=== PATIENT | female | born 1945 | race Caucasian/White ===

== ENCOUNTER → 2018-06-12 | Outpatient (CLI) | payer MEDICARE, OTHER ==
[2014-08-09 11:00] VITALS: BP 113/69
[~2018-06-12] MED LIST: ACET325T9 PO; ATOR10TA PO; BUPR150T6 PO; CETI10TA22 PO; DULO60CA6 PO; FLUT16SP NS; FOLI1TAB16 PO; GUAI600T47 PO; HYDR-3165 PO; IOHEXOL 180 MG/ML 10 ML VIAL. ONE; LISI1TAB5 PO; MELO15TA23 PO; METH-37 PO; METO-239 PO; MONT10TA9 PO; MULT1TAB52 PO; NITR50CA PO; OMEG-57 PO; PANT20TA2 PO; PANT40TA5 PO; SOLI5TAB2 PO; TIZA4TAB PO; TRAM50TA PO; VIT1TABL34 PO; methylPREDNISolone ACETATE 40 MG/ML VIAL. ONE; methylPREDNISolone ACETATE 80 MG/ML VIAL. ONE
--- NOTE | 2018-06-12 22:51 | PAIN ---
DATE OF SERVICE: 06/12/2018 INITIAL CONSULTATION FOR PAIN CLINIC CHIEF COMPLAINT: Neck and right upper extremity pain. SECONDARY COMPLAINT: Low back and left lower extremity pain. HISTORY OF PRESENT ILLNESS: This is a 72-year-old female who presents with chief complaint right neck and upper extremity pain. The patient is status post anterior cervical diskectomy with fusion with redo and then posterior fusion with instrumentation. The patient reports the pain at this time for about a year has been around in the neck and right upper extremity as noted. The patient reports no specific recent injury or action that she is aware of, but the pain is beginning to become more noticeable with repetitive motions, weightbearing with her right arm, reaching over her head or even driving the car with her right arm. The patient reports it generally is not awakening her from sleep at night, feels better with resting or putting her arm on her side, but when she is looking at her computer or reading with her head in a forward flexed position the pain is much more noticeable. The patient reports she has had physical therapy, chiropractic treatments, recently exercise continuously and still doing this. All these which do help to moderate extent, but nothing is decreasing the pain over about 20-30%. The patient has tried [id number] ibuprofen as well as Tylenol and narcotics in the past as well with only moderate decrease in pain. The patient rates her disability rating from 0-10, 10 being the worst, is a 6 with family and home responsibilities, recreation and occupation; 4 with social activity and sexual behavior; 1 with self-care and life support activities. The patient did have cervical MRI showing post-surgical changes, decompression and instrumentation at C5 through C7; ACDF at C6-C7; interbody spacer at C5-C6 and C6-C7; osseous fusion in the C5, C6 and C7 vertebral bodies; severe spinal stenosis C4-C5, one level above the patient's fusion. The patient describes the pain as constant, sharp, stabbing, radiating into the posterior shoulder blade itself and into the posterior triceps to the elbow and sometimes into the posterior aspect of the forearm as well, but not into the hand. The patient reports again has some tingling in the arm as well as radiating, constant, mostly sharp pain, sometimes electrical shocks as well. PAST MEDICAL HISTORY: Significant for hypertension, dizziness, arthritis, osteoporosis, asthma, chronic cough. The patient quit smoking in 1963. PREVIOUS SURGERY: Include right knee replacement in 2017, lumpectomy, orbital fracture of the right eye, arthroscopic right knee surgery, laminectomy L4-L5 in 1998, cervical surgery 2006 x 2 as well as cervical posterior fusion as additional surgery, breast biopsy in 2001, lumbar laminectomy again in 2001 and an ACDF in 2001. Also, previous ganglion cyst removal, carpal tunnel repairs and tonsillectomy as well as a cholecystectomy. CURRENT MEDICATIONS: Include VESIcare, Cymbalta, bupropion, lisinopril, pantoprazole, meloxicam, methocarbamol, Mucinex, stool softener, montelukast, tizanidine daily baby aspirin, Zyrtec, Atrovent, Lipitor, metoprolol, nitrofurantoin, Tylenol, Breo inhaler, fluticasone and methocarbamol. ALLERGIES: THE PATIENT IS ALLERGIC TO VANCOMYCIN, BACTRIM AND PENICILLIN. FAMILY HISTORY: Significant for hypertension. SOCIAL HISTORY: The patient does not drink alcohol, has not smoked in many years. Does not use any illegal, illicit or recreational drugs or substances. The patient is and lives locally in [place], [place]. Does not have any children living in the home. Reports she is currently retired. REVIEW OF SYSTEMS: The patient's review of systems is positive for those items mentioned in history of present illness. All systems reviewed and otherwise negative. It is complete, full and well documented on the patient's chart. PHYSICAL EXAMINATION: VITAL SIGNS: The patient's blood pressure is 146/68, pulse 52, respirations 18, temperature is 98.7 degrees Fahrenheit, height is 5 feet 7 inches, weight 219 pounds. GENERAL: The patient is awake, alert, oriented, appropriate, very pleasant demeanor. HEENT: Shows normocephalic, atraumatic. Extraocular movements intact and symmetrical. Oral cavity: Mucous membranes moist and pink. Dentition is intact. NECK: Shows anterior throat supple without palpable lymphadenopathy noted. Swallow reflex is symmetrical. CHEST: Shows normal on inspection. Breath sounds are clear to auscultation bilaterally. HEART: Shows S1, S2 clear. No murmurs auscultated. ABDOMEN: Soft, nontender, nondistended. No palpable organomegaly is noted. No rebound or guarding demonstrated. BACK: Shows spine grossly in the midline. Slight flattening of cervical lordotic curvature as well as thoracic kyphotic curvature, which is exaggerated and flattening of the lumbar lordotic curvature. Well-healed surgical scar in the lumbar distribution as well as the posterior cervical distribution and anterior cervical neck and throat, which appears well healed. The patient's posterior cervical paraspinous muscle shows symmetrical on inspection. On palpation shows some moderate tenderness throughout the upper, middle, lower distribution of paraspinous muscles bilaterally, slightly worse on the right than the left into the superior medial trapezius, but without trigger points, without specific radiation. The patient has good rotational motion both laterally greater than 45 degrees right and left as well as full forward flexion with only very mild pain reported with extension and flexion, but not with full lateral rotation. The patient's low back shows good rotational motion as well, both laterally greater than 10 degrees right and left as well as extension greater than 10 degrees, forward flexion 45 degrees without significant pain reported. Paraspinous musculature in the lumbar distribution is diffusely tender, but only mildly so throughout the upper, middle and lower distribution of paraspinous muscles. The patient's upper extremities show deep tendon reflexes at 2+ in the biceps and triceps tendons. Motor exam is approximately 4 on a scale 5 on the right and 5/5 on the left with cranberry bog supervisor strength bicep and tricep flexion. Shoulder shrug is strong and intact without loss of strength on resistance, but with pain reported in the right posterior scapula with resistance. This is true with abduction of the shoulders at 90 degrees with no loss of strength on resistance, but again with pain reported in the right scapula with resistance only, not on the left. Lower extremities show deep tendon reflexes 1+ in the patellar and tendo calcaneus tendons. Motor exam is strong with approximately 4/5 equal and symmetrical dorsiflexion, extension, quadriceps and hamstring flexion of lower extremities. Peripheral pulses are 1+ posterior tibia. No peripheral edema is noted. Extremities are equal in color and appearance. Warm and dry to touch both upper and lower. No edema bilaterally in any of the extremities. The patient's skin shows warm and dry, good turgor. No edema. No sores, rashes or bruising. IMPRESSION: This is a 72-year-old female with: 1. Long history of both neck and low back pain with multiple spinal surgical interventions and fusions in both regions with radicular pain now in the low back, left lower extremity as well as the right shoulder and right upper extremity, which is her chief complaint. 2. MRI scan of cervical spine as noted. 3. Hypertension. 4. Arthritis. 5. Osteoporosis. 6. Asthma. PLAN: Options were discussed with the patient including conservative medical management, physical therapy, interventional techniques. She would like to pursue interventional techniques. We discussed a cervical epidural steroid injection using description as well as anatomical models to describe the procedure. Risks were then discussed including, but not limited to bleeding, infection, possibility of epidural hematoma, subsequent neurological compromise, dural puncture, headaches, spinal cord and/or nerve damage, side effects of steroid medication and poor results regarding pain control. The patient understands and wishes to proceed. The patient will return to the clinic in approximately 2 weeks for followup, was counseled to return appointment, activity level and side effects to be aware of. DIAGNOSES: Cervical radiculopathy with cervical degenerative disk disease and post-cervical laminectomy syndrome. PROCEDURE: Cervical epidural steroid injection translaminar approach at C7-T1 level using C-arm fluoroscopic guidance under sterile prep and drape using local anesthetic. MEDICATION INJECTED: A total of 120 mg Depo-Medrol plus 5 mL preservative-free normal saline and 2 mL of Isovue for contrast. CONDITION AT DISCHARGE: Stable. The patient tolerated the procedure well, had no complications. MAGED ESTEVES MD DR: REMBERTO/mukesh JOB#: [id number] / [id number]
== END | disposition home or self-care (01) ==
LOC: PNCL 10:19
PROVIDERS: ATTEND Anesthesiology
DX: M50.13 Cervical disc disorder with radiculopathy, cervicothoracic region (principal); M96.1 Postlaminectomy syndrome, not elsewhere classified; I10 Essential (primary) hypertension; J45.909 Unspecified asthma, uncomplicated; M19.90 Unspecified osteoarthritis, unspecified site; M81.0 Age-related osteoporosis without current pathological fracture; Z87.891 Personal history of nicotine dependence; Z96.651 Presence of right artificial knee joint; Z98.890 Other specified postprocedural states; Z90.49 Acquired absence of other specified parts of digestive tract; Z79.899 Other long term (current) drug therapy; Z79.82 Long term (current) use of aspirin; Z88.0 Allergy status to penicillin; Z88.1 Allergy status to other antibiotic agents; Z82.49 Family history of ischemic heart disease and other diseases of the circulatory system; Z88.8 Allergy status to other drugs, medicaments and biological substances
CPT/HCPCS: 62321; J1030; J1040; Q9965

== ENCOUNTER → 2018-06-29 | Outpatient (CLI) | payer MEDICARE, OTHER ==
[2014-08-09 11:00] VITALS: BP 113/69
[~2018-06-29] MED LIST changes: +ASPI81TA50 PO
--- NOTE | 2018-06-29 12:21 | PAIN ---
DATE OF SERVICE: 06/29/2018 PROGRESS NOTE FOR PAIN CLINIC DIAGNOSES: 1. Cervical radiculopathy with cervical degenerative disk disease and cervical post-laminectomy syndrome. 1. Lumbar radiculopathy with lumbar degenerative disk disease, post-lumbar laminectomy syndrome. HISTORY OF PRESENT ILLNESS: The patient is a 72-year-old female who returns for followup status post cervical epidural steroid injection x 1. The patient reports about 2 weeks of decreased pain by about 50%. The patient reports that the pain in the neck and right shoulder is much better, not as much, traveling down past the shoulder and the arm as it was previously. The patient is doing quite a bit better, was increasing her activity with greater ease and comfort, doing household activities with greater ability and ease, sleeping well at night and continues to sleep well and it does not awaken her from sleep. The patient reports pain is in the base of the neck, right shoulder posteriorly mainly into the scapula and into the posterior deltoid, posterior triceps and some into the forearm, but much less than previously. The patient reports it is aching and constant, becoming more noticeable radiating and some stabbing sensation in the neck and shoulder as well. The patient reports her pain is 7 on a scale of 10 at its worst, 6 on average, 3 at its least and is a 6 today. The patient reports no new motor or sensory deficits, no new bowel or bladder incontinence or other complaints. PHYSICAL EXAMINATION: VITAL SIGNS: The patient's blood pressure 114/64, pulse 63, respirations 16, temperature 98.1 degrees Fahrenheit, height 5 feet 7 inches, weight is 212 pounds. GENERAL: The patient is awake, alert, oriented, appropriate, very pleasant demeanor. HEENT: Head shows normocephalic, atraumatic. Extraocular movements are intact and symmetrical. Oral cavity: Mucous membranes moist and pink. Dentition is intact. NECK: Shows anterior throat supple without palpable lymphadenopathy noted. Swallow reflex symmetrical. CHEST: Shows normal on inspection. Breath sounds clear to auscultation bilaterally. HEART: Shows S1, S2 clear. No murmurs auscultated. ABDOMEN: Soft, nontender, nondistended. No palpable organomegaly is noted. No rebound or guarding demonstrated. BACK: Shows spine grossly in the midline, normal-appearing cervical lordotic curvature with well-healed surgical scar noted and some slight increase in thoracic kyphosis. Lumbar scar is noted as well with some flattening of lumbar lordotic curvature. Cervical paraspinous muscle shows symmetrical on inspection. On palpation, there is moderate tenderness diffusely bilaterally in the middle and inferior aspect of the cervical paraspinous muscles and the patient shows good rotation of motion both laterally with some moderate restriction with extension, but not with forward flexion. EXTREMITIES: The patient's upper extremities show deep tendon reflexes 2+ in the biceps and triceps tendons. Motor exam is 4/5 on the right, 5/5 on the left with instructor ground services strength, bicep and tricep flexion. Peripheral pulses are 2+ in radial distribution. No peripheral edema is noted bilaterally. PLAN: Options were discussed with the patient. The patient's old chart was reviewed as her current medication regimen updated. Current review of systems updated today as well. We will proceed with a cervical epidural steroid injection, the second in the series with fluoroscopic guidance. Risks were again discussed including, but not limited to bleeding, infection, possibility of epidural hematoma and subsequent neurological compromise, dural puncture, headaches, spinal cord and/or nerve damage, side effects of steroid medication and poor results regarding pain control. The patient understands and wished to proceed. The patient will return to clinic in approximately 2 weeks for followup, was counseled on return appointment, activity level, and side effects to be aware of. DIAGNOSES: Cervical radiculopathy with cervical degenerative disk disease and post-cervical laminectomy syndrome. PROCEDURE: Cervical epidural steroid injection, translaminar approach at the C7-T1 level using C-arm fluoroscopic guidance under sterile prep and drape using local anesthetic. MEDICATION INJECTED: A total of 120 mg Depo-Medrol plus 5 mL of preservative-free normal saline and 2 mL of Isovue for contrast. CONDITION AT DISCHARGE: Stable. The patient tolerated the procedure well, had no complications. MAGED ESTEVES MD DR: REMBERTO/mukesh JOB#: [id number] / [id number]
== END | disposition home or self-care (01) ==
LOC: PNCL 10:30
PROVIDERS: ATTEND Anesthesiology
DX: M50.13 Cervical disc disorder with radiculopathy, cervicothoracic region (principal); M96.1 Postlaminectomy syndrome, not elsewhere classified; M51.16 Intervertebral disc disorders with radiculopathy, lumbar region; Z88.0 Allergy status to penicillin; Z88.1 Allergy status to other antibiotic agents; Z88.8 Allergy status to other drugs, medicaments and biological substances
CPT/HCPCS: 62321; J1030; J1040; Q9965

== ENCOUNTER → 2018-09-30 | Outpatient (CLI) | payer MEDICARE, OTHER ==
[2014-08-09 11:00] VITALS: BP 113/69
--- NOTE | 2018-10-01 01:23 | PAIN ---
DATE OF SERVICE: 09/30/2018 DIAGNOSIS: Cervical radiculopathy with cervical degenerative disk disease, post cervical laminectomy syndrome. HISTORY OF PRESENT ILLNESS: The patient is a 73-year-old female who returns for followup status post cervical epidural steroid injection x 2. The patient reports about 80-90% improvement for the first month in the neck and right shoulder pain. The pain is returning now, but still not near baseline. The patient reports it depends on what her activity is and how her activities during the day progresses is how the pain is, but most days it is fairly well controlled. The patient reports it is 8 on a scale of 10 at its worst, 6 on average, 3 at least over the past week. Reports it is aching, constant, again depending on pain medicine used and activity, can be much less. The patient reports pain in the base of the neck, right shoulder, right posterior shoulder, upper arm, into the forearm, but less into the hand and with less numbness and tingling in the arm as well. The patient reports she is doing well with sleeping, does not awaken her from sleep at night, reports she sleeps about 7-8 hours at a time. She was increasing her distance walking, doing household activities with greater ease and comfort, using her right upper extremity with greater ease after the last injection. The patient reports no new motor or sensory deficits. No new changes. PHYSICAL EXAMINATION: VITAL SIGNS: The patient's blood pressure is 111/73, pulse 71, respirations 16, temperature is 98.4 degrees Fahrenheit. Height is 5 feet 7 inches, weight is 213 pounds. GENERAL: The patient is awake, alert and oriented, appropriate, very pleasant demeanor. HEENT: Head shows normocephalic, atraumatic. Extraocular movements are intact and symmetrical. Oral cavity: Mucous membranes are moist and pink. Dentition is intact. NECK: Shows anterior throat supple, without palpable lymphadenopathy noted. Swallow reflex is symmetrical. CHEST: Shows normal on inspection. Breath sounds are clear to auscultation bilaterally. HEART: S1, S2 clear. No murmurs auscultated. ABDOMEN: Soft, nontender, nondistended. No palpable organomegaly is noted. No rebound or guarding demonstrated. BACK: Shows spine grossly in midline. Normal-appearing thoracic kyphosis and normal lordotic curvature. Cervical lordotic curvature is flattened with a well-healed surgical scar, which is fairly extensive. Cervical paraspinous muscle shows symmetrical on inspection; on palpation shows some moderate tenderness diffusely bilaterally, but only diffusely without significant radiation. EXTREMITIES: Upper extremities showed deep tendon reflexes at 2+ in the biceps and triceps tendons. Motor exam is approximately 4 on a scale of 5 on the right and 5/5 on the left. Peripheral pulses are 2+ radial distribution. No peripheral edema is noted bilaterally. Options were discussed with the patient. The patient's old chart was reviewed as was her current medication regimen updated. Current review of systems was updated today as well. We will proceed with a third in the series of cervical epidural steroid injection today with fluoroscopic guidance. Risks were again discussed including, but not limited to bleeding, infection, possibility of epidural hematoma, subsequent neurological compromise, dural puncture, headache, spinal cord and/or nerve damage, side effects of steroid medication and poor results regarding pain control. The patient understands and wished to proceed. The patient will return to clinic in approximately 2 weeks to followup. She was counseled as to return appointment, activity level and side effects to be aware of. DIAGNOSIS: Cervical radiculopathy with cervical degenerative disk disease, cervical post laminectomy syndrome. PROCEDURE: Cervical epidural steroid injection, translaminar approach, C7-T1 level, using C-arm fluoroscopic guidance under sterile prep and drape using local anesthetic. MEDICATIONS INJECTED: A total of 120 mg of Depo-Medrol plus 5 mL of preservative-free normal saline and 2 mL of Isovue for contrast. CONDITION ON DISCHARGE: Stable. The patient tolerated the procedure well, had no complications. MAGED ESTEVES MD DR: REMBERTO/mukesh JOB#: [id number] / [id number]
== END | disposition home or self-care (01) ==
LOC: PNCL 11:04
PROVIDERS: ATTEND Anesthesiology
DX: M50.13 Cervical disc disorder with radiculopathy, cervicothoracic region (principal); Z96.1 Presence of intraocular lens; Z88.0 Allergy status to penicillin; Z88.1 Allergy status to other antibiotic agents; Z88.8 Allergy status to other drugs, medicaments and biological substances
CPT/HCPCS: 62321; J1030; J1040; Q9965